=== PATIENT | male | born 1970 | race Caucasian/White ===

== ENCOUNTER 2024-05-17 07:17 | Outpatient (CLI) | payer MEDICAID, SELFPAY ==
--- NOTE | 2024-05-17 08:15 | P.ANES_ITS ---
Anesthesia Charges Start Date/Time Anesthesia Start Date: 05/17/24 Anesthesia Start Time: 08:22 Stop Date/Time Anesthesia Stop Date: 05/17/24 Anesthesia Stop Time: 09:18 Coding CPT Codes CPT Codes: BRYANT LWR INTST NDNM NOS - 62140 ([id number]) P1 - NORMAL HEALTHY PATIENT, QK - HEALTHCARE ECONOMICS CONSULTANT 2-4 CNCRNT ANES PROC, QX - INSURANCE EXAMINING CLERK SVC W/ MED DIRECTION
--- NOTE | 2024-05-17 08:15 | W.ANESCHARGE ---
Anesthesia Charges Start Date/Time Anesthesia Start Date: 05/17/24 Anesthesia Start Time: 08:22 Stop Date/Time Anesthesia Stop Date: 05/17/24 Anesthesia Stop Time: 09:18 Coding CPT Codes CPT Codes: BRYANT LWR INTST NDMT NOS - 63380 ([id number]) P1 - NORMAL HEALTHY PATIENT, QK - DIRECTOR OF ATHLETICS 2-4 CNCRNT ANES PROC, QX - CORK INSULATION SETTER SVC W/ MED DIRECTION
--- NOTE | 2024-05-17 09:33 | P.ANES_ITS ---
Anesthesia Charges Start Date/Time Anesthesia Start Date: 05/17/24 Anesthesia Start Time: 08:22 Stop Date/Time Anesthesia Stop Date: 05/17/24 Anesthesia Stop Time: 09:18 Coding CPT Codes CPT Codes: ANEMila LWR INTST NDSC NOS - 92031 ([id number]) QK - IMPLEMENTATION SPECIALIST 2-4 CNCRNT ANES PROC, QX - BASEBALL HAND SEWER SVC W/ MED DIRECTION, P1 - NORMAL HEALTHY PATIENT
--- NOTE | 2024-05-17 09:33 | W.ANESCHARGE ---
Anesthesia Charges Start Date/Time Anesthesia Start Date: 05/17/24 Anesthesia Start Time: 08:22 Stop Date/Time Anesthesia Stop Date: 05/17/24 Anesthesia Stop Time: 09:18 Coding CPT Codes CPT Codes: ANEMila LWR INTST NDSC NOS - 47541 ([id number]) QK - MUSIC MINISTER 2-4 CNCRNT ANES PROC, QX - VP DIRECTOR OF FINANCE SVC W/ MED DIRECTION, P1 - NORMAL HEALTHY PATIENT
--- NOTE | 2024-05-17 15:50 | PM.GSCN ---
History of Present Illness Consult details Date Seen: 05/17/24 Consult date: 05/17/24 Narrative: 54-year-old male underwent colonoscopy today in the morning and called our [facility] with complaints of bloody stools. Patient had multiple polyps removed with 2 larger polyps removed by hot snare. Patient states that he went home, he ate breakfast and went to bed. When he got up from sleeping, he went to the bathroom and had a bowel movement with clots. There was also blood in the toilet paper. 15 minutes later he had a second stool with clots as well. He got dizzy when he looked at blood and ?slid down on the carpet?. He does not feel like he passed out. His last bowel movement was about 1 hour ago. No bowel movements since then. He does feel urgency to have a bowel movement and has been passing a lot of gas. He denies abdominal pain. He feels gas discomfort in his belly. Review of Systems Narrative: General: no fevers HENT: no problems swallowing CV: no shortness of breath Resp: no cough GI: No nausea, vomiting, abdominal pain : no dysuria, no increased urinary frequency, no hematuria Skin: no new rashes Musculoskeletal: no back pain Neuro: no muscle weakness Psyche: no depression, no anxiety PFSH PFSH Medical History Hematospermia ?R36.1 - Hematospermia (ICD-10) Bloody stools ?K92.1 - Melena (ICD-10) Solitary kidney, congenital ?Q60.0 - Renal agenesis, unilateral (ICD-10) Surgical History H/O hernia repair ?Z98.890 - Other specified postprocedural states (ICD-10) ?Z87.19 - Personal history of other diseases of the digestive system (ICD-10) 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, 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, 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 answer In the past 12 months, utilities in danger of being shut off: declined to answer In past 12 months, lack of transportation kept you from medical appts, meetings, work, or getting things needed for daily living: declined to answer In the past 12 mos, have been you worried that your food would run out before you had money to buy more?: declined to answer In the past 12 mos, the food you bought just didn't last and you didn't have money to buy more?: declined to answer How often does anyone, including family, friends and others, physically hurt you: decline to answer How often does anyone, including family, friends and others, insult or talk down to you: decline to answer How often does anyone, including family, friends and others, threaten you with harm: decline to answer How often does anyone, including family, friends and others, scream or curse at you: decline to answer Meds Home Medications and Allergies Home Medications ?Medication ?Instructions ?Recorded ?Confirmed ?Type No Known Home Medications 05/17/24 05/17/24 History Allergies Allergy/AdvReac Type Severity Reaction Status Date / Time No Known Drug Allergies Allergy Verified 04/20/24 07:56 Exam Narrative: Exam Narrative: General appearance: Alert, cooperative, and in no distress Pulmonary: Chest symmetric, breathing is nonlabored Cardiovascular Heart: Not tachycardic Gastrointestinal Abdominal: soft, not distended, not tender to palpation or percussion, no peritoneal signs. Psychiatric: Alert, cooperative, normal affect. Results Labs Labs: All other labs normal. Progress Note:A&P Assessment and plan (1) Lower GI bleed: Status: Acute Assessment and Plan: 54-year-old male s/p Colonoscopy today in the morning presents with lower GI bleed. I discussed with the patient and his that we will check his hemoglobin. His abdominal exam is benign and I am not concerned for a perforation. I do not think obtaining CT abdomen is going to improve all management. If patient continues to have bloody stools, we will make a plan for repeat colonoscopy. If patient is stable with normal hemoglobin and his bloody stools have stopped, I would favor to treat him conservatively. I discussed this plan with the emergency room doctor.
== END 2024-05-17 07:18 | disposition home or self-care (01) ==
LOC: OP CLINIC 07:19
PROVIDERS: PCP Family Medicine; Visit Provider Surgery
DX: Z12.11 Encounter for screening for malignant neoplasm of colon (principal); K92.2 Gastrointestinal hemorrhage, unspecified; D12.3 Benign neoplasm of transverse colon; D12.4 Benign neoplasm of descending colon; D12.5 Benign neoplasm of sigmoid colon; D12.8 Benign neoplasm of rectum
CPT/HCPCS: 00811; 45381; 45385; 88305; J2704

== ENCOUNTER 2024-05-17 15:18 | Observation (INO) | payer OTHER, SELFPAY ==
--- OUTSIDE RECORDS SUMMARY | 2024-05-17 15:20 | XMS_ITS | Clinical Summary ---
Author Organization [employer] [facility] Address [place], [place] [address] Care Team Providers Care Manufacturing Chief Engineer Name Role Phone Pcp, No Primary Care Provider Unavailabl e Allergies Active Allergy Reactions Criticality Noted Date Comments Venom-Wasp Edema High 03/24/2021 Medications EPINEPHrine (EPIPEN) 0.3 mg/0.3 mL injection Inject 0.3 mg intramuscular. 1 Active dexAMETHasone (DECADRON) 6 mg tabletIndicati ons:Pneumonia due to COVID-19 virus Take 1 Tablet (6 mg) by mouth once daily with a meal. Take in morning 8 Tablet 1 Active omeprazole (PRILOSEC) 20 mg Delayed-Releas e capsuleIndicat ions:Pneumonia due to COVID-19 virus Take 1 Capsule (20 mg) by mouth once daily before a meal. Take while on dexamethasone for GI protection 10 Capsule 1 Active Active Problems Problem Noted Date Diagnosed Date Absent kidney, congenital 03/24/2021 Pneumonia due to COVID-19 virus 03/24/2021 No active medical problems 02/24/2011 Social History Tobacco Use Types Packs/Day Years Used Date Smoking Tobacco: Never Smokeless Tobacco: Former Chew Quit: 02/05/2010 Alcohol Use Standard Drinks/Week Comments Yes 0 (1 standard drink = 0.6 oz pur e alcohol) occ. Social Connections Answer Date Recorded Frequency of Communication with Friends and Fami ly Not on file 04/30/2021 Financial Resource Strain Answer Date R ecorded Difficulty of Paying Living Expenses Not on file 04/30/2021 Difficulty of Paying Living Expenses Not on file 04/30/2021 Sex and Gender Information Value Date Recorded Sex Assigned at Not on file Legal Sex Male 5:23 AM LOGISTICS COORDINATOR Gender Identity Not on file Sexual Orientation Not on file Obstetrics History Last Filed Vital Signs Vital Sign Reading Time Taken Comments Blood Pressure 118/76 03/25/2021 11:15 AM LOGISTICS COORDINATOR Pulse 71 03/25/2021 11:15 AM LOGISTICS COORDINATOR Temperature 36.6 C (97.8 F) 03/25/2021 11:15 AM LOGISTICS COORDINATOR Respiratory Rate 16 03/25/2021 11:15 AM LOGISTICS COORDINATOR Oxygen Saturation 94% 03/25/2021 11:15 AM LOGISTICS COORDINATOR Inhaled Oxygen Concentration - - Weight 89.4 kg (197 lb) 03/24/2021 4:00 AM LOGISTICS COORDINATOR Height 182.9 cm (6') 03/24/2021 4:00 AM LOGISTICS COORDINATOR Body Mass Index 26.72 03/24/2021 4:00 AM LOGISTICS COORDINATOR Plan of Treatment Health Maintenance Due Date Last Done Comments Tdap 1982 Depression screening for age 12+ 1983 BMI (ht and wt on same day) for age 18+ 1989 Hepatitis C screening for ag e 18-79 1989 Tetanus booster 1991 Colonoscopy through age 75 01/26/2016 Lipids for age 45-75 01/26/2016 Zoster (shingles) series for age 50+ (1 of 2) 2021 COVID-19 vaccine series (2023- season) 2024 Influenza for age 50-64 01/08/2024 HIV for age 15-65 Completed 09/09/2008 Pneumococcal series for age 6-49 Aged Out No longer eligible based on patient's age to complete this topic Procedures Procedure Name Priority Date/Time Associated Diagnosis Comments ANTI HIV 1/2 Routine 09/09/2008 10:38 AM CDT Screen for STD (Sexually Transmitted Disease) from Last 3 Months or Most Recently Relevant to Health Maintenance Results * ANTI HIV 1/2 (09/09/2008 10:38 AM CDT) ANTI HIV 1/2 Non-reacti ve [facility] Blood specimen (specimen) BLOOD SPECIMEN / Unknown 09/09/2008 10:38 AM CDT 09/09/2008 10:22 AM CDT us Dhaval Mckenna MD SEND OUTS Final Resul t [facility] INTERNAL ZIP [phone] [address] from Last 3 Months or Most Recently Relevant to Health Maintenance Insurance [employer] AP[employer]SE TANGELA EASON [id number] Advance Directives * Full Code (Latest Code Status on File) Date Activated Date Inactivated Comments 03/24/2021 5:58 AM 03/25/2021 3:58 PM Question Answer Comments Code Status Discussion: Reviewed Preferences Care Teams Manufacturing Chief Engineer Relationship Specialty Start Date End Date Pcp, No . PCP - General 03/20/21
[2024-05-17 15:26] VITALS: BP 128/77; PULSE 68; RESP 20; TEMP 36.6; O2SAT 99; BMI 29.3
[2024-05-17 16:14] LABS: Basophils Percent Auto 0.2 % (0.0-3.0); Hematocrit 45.5 % (37.0-53.0); Hemoglobin* 15.5 gm/dL (13.5-17.5); Immature Granulocytes Pct Auto 0.3 %; Lymphocytes Percent Auto 8.9 % (20-44); Mean Corpuscular HGB Conc 34 gm/dL (32-36); Mean Corpuscular Hemoglobin 31 pg (26-34); Mean Corpuscular Volume 90 fL (80-100); Neutrophils Percent Auto 80.6 % (42.0-72.0); Platelet Count* 306 K/uL (140-440); RDW Coefficient of Variation % 12.3 % (11.5-15.5); Red Blood Count 5.07 m/uL (4.30-5.90); White Blood Count* 18.28 K/uL (4.50-11.00)
[2024-05-17 16:18] LABS: Chloride* 106 mmol/L (96-114); Slide Review Reflex No
[2024-05-17 16:19] LABS: Potassium* 3.3 mmol/L (3.6-5.1); Sodium* 138 mmol/L (135-149)
[2024-05-17 16:21] LABS: Creatinine* 1.3 mg/dL (0.5-1.5); Est. Creatinine Clearance* 69.99; Estimated Glomerular Filt Rate 66 ml/min
[2024-05-17 16:22] LABS: Anion Gap 8 mEq/L (7-15); Blood Urea Nitrogen* 20 mg/dL (7-30); Calcium* 9.1 mg/dL (8.4-10.6); Carbon Dioxide* 24 mmol/L (20-32); Glucose* 106 mg/dL (60-115)
--- NOTE | 2024-05-17 16:35 | ED.GIBLEED ---
HPI - GI Bleed General Date Seen: 05/17/24 Chief complaint: GI Bleed Stated complaint: Bleeding post colonoscopy Time Seen by Provider: 05/17/24 15:32 Source: patient Mode of arrival: ambulatory Limitations: no limitations History of Present Illness HPI Narrative: Patient is a 54-year-old male presenting to emergency department for a GI bleed. He had a colonoscopy this morning and had several polyps removed. Since then he has had 2 episodes of blood per rectum. He passed several clots with both episodes. Of this echo in he states he felt lightheaded and has helped himself to the ground. Since then he has been having no further lightheadedness. States he feels back to normal now. Did initially have some abdominal discomfort that he says feels like gas pain. It does improve whenever he passes gas. He spoke to his surgeon who did a colonoscopy and was told to come in for evaluation. At this time denies fevers, chills, weakness, numbness, abdominal pain, diarrhea, constipation, vision changes. No other concerns noted. No history of bleeding disorders. Related Data Home Medications ?Medication ?Instructions ?Recorded ?Confirmed No Known Home Medications 05/17/24 05/17/24 Allergies Allergy/AdvReac Type Severity Reaction Status Date / Time No Known Drug Allergies Allergy Verified 04/20/24 07:56 Review of Systems Status of ROS: Reports: 10 or more systems reviewed and unremarkable except as noted in History and below [facility] Medical History Hematospermia ?R36.1 - Hematospermia (ICD-10) Bloody stools ?K92.1 - Melena (ICD-10) Solitary kidney, congenital ?Q60.0 - Renal agenesis, unilateral (ICD-10) Surgical History H/O hernia repair ?Z98.890 - Other specified postprocedural states (ICD-10) ?Z87.19 - Personal history of other diseases of the digestive system (ICD-10) 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, 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, 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 answer In the past 12 months, utilities in danger of being shut off: declined to answer In past 12 months, lack of transportation kept you from medical appts, meetings, work, or getting things needed for daily living: declined to answer In the past 12 mos, have been you worried that your food would run out before you had money to buy more?: declined to answer In the past 12 mos, the food you bought just didn't last and you didn't have money to buy more?: declined to answer Smoking Status: Never smoker Do you use any of these nicotine containing products: Smokeless Tobacco How often do you have a drink containing alcohol: 4 or more times a week How many standard drinks containing alcohol do you have on a typical day: 1 or 2 AUDIT-C Alcohol total score: 4 Non-prescribed substance use: denies use How often does anyone, including family, friends and others, physically hurt you: decline to answer How often does anyone, including family, friends and others, insult or talk down to you: decline to answer How often does anyone, including family, friends and others, threaten you with harm: decline to answer How often does anyone, including family, friends and others, scream or curse at you: decline to answer Exam Const: Vital Signs, click to edit/add: Vital Signs - 24 hr 05/17/24 15:26 05/17/24 17:23 Temperature 97.9 F 97.6 F Pulse Rate [Pulse Oximeter] 68 66 Respiratory Rate 20 18 Blood Pressure [Ri ght Upper Arm] 128/77 138/86 Pulse Oximetry 99 98 Oxygen Delivery Me thod Room Air Room Air Course Vital Signs Vital signs: Initial Vital Signs Temperature 97.9 F 05/17/24 15:26 Temperature Source Temporal Artery Scan 05/17/24 15:26 Pulse Rate 68 05/17/24 15:26 Pulse Rhythm Regular 05/17/24 15:26 Respiratory Rate 20 05/17/24 15:26 Blood Pressure 128/77 05/17/24 15:26 Blood Pressure Mean 94 05/17/24 15:26 Blood Pressure Position Sitting 05/17/24 15:26 Pulse Oximetry 99 05/17/24 15:26 Oxygen Delivery Method Room Air 05/17/24 15:26 Vital Signs Temperature 97.9 F 05/17/24 15:26 Pulse Rate 68 05/17/24 15:26 Respiratory Rate 20 05/17/24 15:26 Blood Pressure 128/77 05/17/24 15:26 Pulse Oximetry 99 05/17/24 15:26 Oxygen Delivery Method Room Air 05/17/24 15:26 Temperature 97.6 F 05/17/24 17:23 Pulse Rate 66 05/17/24 17:23 Respiratory Rate 18 05/17/24 17:23 Blood Pressure 138/86 05/17/24 17:23 Pulse Oximetry 98 05/17/24 17:23 Oxygen Delivery Method Room Air 05/17/24 17:23 MDM - GI Bleed MDM Narrative Medical decision making narrative: Patient is a 54-year-old male presenting for a GI bleed after the colonoscopy. I spoke to the return surgeon lab did the procedure. Plan right now is to do a hemoglobin monitor him for 3 hours issue bleeding continues and then repeat hemoglobin. In the 3 hours we waited he had 2 more episodes of blood in his stool with clots. First 1 is similar to his 1st to and the 2nd 1 was less blood. Hemoglobin went from 15.5-15.9. I spoke to the surgeon again and she recommends admission under her service for repeat colonoscopy in the morning. Patient is stable and agrees to this plan. Lab Data Labs: Lab Results 05/17/24 05/17/24 Range/Units 16:00 18:40 WBC 18.28 H (4.50-11.00) K/uL RBC 5.07 (4.30-5.90) m/uL Hgb 15.5 15.9 (13.5-17.5) gm/dL Hct 45.5 (37.0-53.0) % MCV 90 (80-100) fL MCH 31 (26-34) pg MCHC 34 (32-36) gm/dL RDW Coeff of Nicki 12.3 (11.5-15.5) % Plt Count 306 (140-440) K/uL Neut % (Auto) 80.6 H (42.0-72.0) % Lymph % (Auto) 8.9 L (20-44) % Mobile % (Auto) 9.0 (0.0-11.0) % Eos % (Auto) 1.0 (0.0-7.0) % Baso % (Auto) 0.2 (0.0-3.0) % Neut # (Auto) 14.70 H (1.7-7.0) K/uL Lymph # (Auto) 1.60 (0.90-2.90) K/uL Mobile # (Auto) 1.60 H (0.00-0.90) K/UL Eos # (Auto) 0.20 (0.00-0.50) K/uL Baso # (Auto) 0.00 (0.00-0.30) K/uL Abs Immat Gran (auto) 0.10 (0.00-0.30) K/uL Imm/Tot Granulo (auto) 0.3 % Sodium 138 (135-149) mmol/L Potassium 3.3 L (3.6-5.1) mmol/L Chloride 106 (96-114) mmol/L Carbon Dioxide 24 (20-32) mmol/L Anion Gap 8 (7-15) mEq/L BUN 20 (7-30) mg/dL Creatinine 1.3 (0.5-1.5) mg/dL Estimated Creat Clear 69.99 Estimated GFR 66 ml/min Glucose 106 (60-115) mg/dL Calcium 9.1 (8.4-10.6) mg/dL Discharge Plan Discharge Clinical Impression: Lower GI bleed Patient Disposition: Admitted As Observation Condition: Stable Prescriptions: No Action No Known Home Medications Follow Up/Referrals: Bobby Weiner MD [Primary Care Provider] -
--- OUTSIDE RECORDS SUMMARY | 2024-05-17 16:59 | XMS_ITS | Clinical Summary ---
Author Organization [employer] [facility] Address [place], [place] [address] Care Team Providers Care Internship Name Role Phone Pcp, No Primary Care [...] on file Legal Sex Male 5:23 AM CAMPUS REP Gender Identity Not on file Sexual Orientation Not on file Obstetrics History Last Filed Vital Signs Vital Sign Reading Time Taken Comments Blood Pressure 118/76 03/25/2021 11:15 AM CAMPUS REP Pulse 71 03/25/2021 11:15 AM CAMPUS REP Temperature 36.6 C (97.8 F) 03/25/2021 11:15 AM CAMPUS REP Respiratory Rate 16 03/25/2021 11:15 AM CAMPUS REP Oxygen Saturation 94% 03/25/2021 11:15 AM CAMPUS REP Inhaled Oxygen Concentration - - Weight 89.4 kg (197 lb) 03/24/2021 4:00 AM CAMPUS REP Height 182.9 cm (6') 03/24/2021 4:00 AM CAMPUS REP Body Mass Index 26.72 03/24/2021 4:00 AM CAMPUS REP Plan of Treatment Health Maintenance Due Date [...] AM CDT) ANTI HIV 1/2 Non-reacti ve [facility] Blood specimen (specimen) BLOOD SPECIMEN / Unknown 09/09/2008 10:38 AM CDT 09/09/2008 10:22 AM CDT us Dhaval Mckenna MD SEND OUTS Final Resul t [facility] INTERNAL ZIP [phone] [address] from Last 3 Months or Most Recently Relevant to Health Maintenance Insurance [employer] AP[employer] [place]ANGEL[place] EASON [id number] Advance Directives * Full Code (Latest Code Status on File) Date Activated Date Inactivated Comments 03/24/2021 5:58 AM 03/25/2021 3:58 PM Question Answer Comments Code Status Discussion: Reviewed Preferences Care Teams Internship Relationship Specialty Start Date End Date Pcp, No . PCP - General 03/20/21
[2024-05-17 17:23] VITALS: BP 138/86; PULSE 66; RESP 18; TEMP 36.4; O2SAT 98
[2024-05-17 18:44] LABS: Hemoglobin* 15.9 gm/dL (13.5-17.5)
[2024-05-17 18:52] VITALS: BP 157/94; PULSE 66; RESP 18; TEMP 36.6; O2SAT 100
[2024-05-17 20:23] VITALS: BP 157/94; PULSE 66; RESP 18; TEMP 36.6; O2SAT 96; BMI 28.9
--- OUTSIDE RECORDS SUMMARY | 2024-05-17 20:36 | XMS_ITS | Clinical Summary ---
Author Organization [employer] [facility] Address [place], [place] [address] Care Team Providers Care Automobile Mechanic Name Role Phone Pcp, No Primary Care [...] on file Legal Sex Male 5:23 AM YARD CALLER Gender Identity Not on file Sexual Orientation Not on file Obstetrics History Last Filed Vital Signs Vital Sign Reading Time Taken Comments Blood Pressure 118/76 03/25/2021 11:15 AM YARD CALLER Pulse 71 03/25/2021 11:15 AM YARD CALLER Temperature 36.6 C (97.8 F) 03/25/2021 11:15 AM YARD CALLER Respiratory Rate 16 03/25/2021 11:15 AM YARD CALLER Oxygen Saturation 94% 03/25/2021 11:15 AM YARD CALLER Inhaled Oxygen Concentration - - Weight 89.4 kg (197 lb) 03/24/2021 4:00 AM YARD CALLER Height 182.9 cm (6') 03/24/2021 4:00 AM YARD CALLER Body Mass Index 26.72 03/24/2021 4:00 AM YARD CALLER Plan of Treatment Health Maintenance Due Date [...] AM CDT) ANTI HIV 1/2 Non-reacti ve [facility] Blood specimen (specimen) BLOOD SPECIMEN / Unknown 09/09/2008 10:38 AM CDT 09/09/2008 10:22 AM CDT us Dhaval Mckenna MD SEND OUTS Final Resul t [facility] INTERNAL ZIP [phone] [address] from Last 3 Months or Most Recently Relevant to Health Maintenance Insurance [employer] AP[employer] [place] E[place]ON [id number] Advance Directives * Full Code (Latest Code Status on File) Date Activated Date Inactivated Comments 03/24/2021 5:58 AM 03/25/2021 3:58 PM Question Answer Comments Code Status Discussion: Reviewed Preferences Care Teams Automobile Mechanic Relationship Specialty Start Date End Date Pcp, No . PCP - General 03/20/21
[2024-05-17] MEDS: LACTATED RINGERS 1000 ML 1,000 ML 100 ML IV (20:39)
[2024-05-17] MEDS: polyethylene glycoL 238 GM BULK BOTTLE PO (22:00)
[2024-05-17 23:00] VITALS: BP 144/128; PULSE 75; RESP 16; TEMP 36.7; O2SAT 97
--- NOTE | 2024-05-18 02:57 | PC.NURSE ---
The patient had 1 episode of a large amount of dark blood per rectum.. and reports an increase in abdominal pain at this time.
[2024-05-18 03:00] VITALS: BP 136/84; PULSE 65; RESP 16; TEMP 36.6; O2SAT 97
--- NOTE | 2024-05-18 06:27 | PC.NURSE ---
DR Eufemia CASTRO HERE TAKING PT TO [facility] AND WILL DC FROM [facility].
--- NOTE | 2024-05-18 07:12 | P.ANES_ITS ---
Anesthesia Charges Start Date/Time Anesthesia Start Date: 05/18/24 Anesthesia Start Time: 06:30 Stop Date/Time Anesthesia Stop Date: 05/18/24 Anesthesia Stop Time: 07:05 Coding CPT Codes CPT Codes: BRYANT LWR INTST SCR COLSC - 90132 ([id number]) P1 - NORMAL HEALTHY PATIENT, QK - FACE WORKER 2-4 CNCRNT ANES PROC, QX - CLAIMS COORDINATOR SVC W/ MED DIRECTION
--- NOTE | 2024-05-18 07:12 | W.ANESCHARGE ---
Anesthesia Charges Start Date/Time Anesthesia Start Date: 05/18/24 Anesthesia Start Time: 06:30 Stop Date/Time Anesthesia Stop Date: 05/18/24 Anesthesia Stop Time: 07:05 Coding CPT Codes CPT Codes: BRYANT LWR INTST SCR COLSC - 32443 ([id number]) P1 - NORMAL HEALTHY PATIENT, QK - CHIEF DEPUTY SHERIFF 2-4 CNCRNT ANES PROC, QX - WATCH INSPECTOR SVC W/ MED DIRECTION
--- NOTE | 2024-05-18 07:13 | P.DS_ITS ---
DS: Providers Provider Date Seen: 05/18/24 Primary care physician: Bobby Weiner MD Attending Physician on discharge: Mary Silverman MD DS: Diagnosis Discharge Diagnosis (1) Lower GI bleed: Status: Acute DS: Summary Hospital Course Hospital Course: Patient was admitted overnight after he underwent colonoscopy on 05/17/2024 and came back to the emergency room with multiple bloody stools. Patient was prepped with MiraLax Gatorade. He had several stools with clots but was hemodynamically stable. His hemoglobin was stable. Patient was then brought back for repeat colonoscopy and no active bleeding was seen from polypectomy sites. All polypectomy sites were treated with clips to prevent future bleeding. Time Spent with Patient Time attestation: Total time spent providing and/or coordinating discharge services: Exam Narrative: Exam Narrative: Respiratory: Clear lungs to auscultation Cardiac: Regular rate and rhythm, not tachycardic. Const: Vital Signs, click to edit/add: Vital Signs - 24 hr 05/17/24 15:26 05/17/24 17:23 05/17/24 18:52 Temperature 97.9 F 97.6 F 97.9 F Pulse Rate [Pulse Oximeter] 68 66 66 Respiratory Rate 20 18 18 Blood Pressure [Le ft Arm] 157/94 H Blood Pressure [Ri ght Upper Arm] 128/77 138/86 Pulse Oximetry 99 98 100 Oxygen Delivery Me thod Room Air Room Air Room Air 05/17/24 20:23 05/17/24 23:00 05/17/24 23:00 Temperature 97.9 F 98.0 F Pulse Rate [Pulse Oximeter] 66 75 Respiratory Rate 18 16 Blood Pressure [Le ft Arm] 157/94 H 144/128 H Blood Pressure [Ri ght Upper Arm] Pulse Oximetry 96 97 97 Oxygen Delivery Me thod Room Air Room Air Room Air 05/18/24 03:00 Temperature 97.8 F Pulse Rate [Pulse Oximeter] 65 Respiratory Rate 16 Blood Pressure [Le ft Arm] 136/84 Blood Pressure [Ri ght Upper Arm] Pulse Oximetry 97 Oxygen Delivery Me thod Room Air DS: Data Data Completed and Pending Labs on day of discharge: Labs from last 24 hours 05/17/24 05/17/24 18:40 16:00 WBC 18.28 H RBC 5.07 Hgb 15.9 15.5 Hct 45.5 MCV 90 MCH 31 MCHC 34 RDW Coeff of Nicki 12.3 Plt Count 306 Neut % (Auto) 80.6 H Lymph % (Auto) 8.9 L Newton % (Auto) 9.0 Eos % (Auto) 1.0 Baso % (Auto) 0.2 Neut # (Auto) 14.70 H Lymph # (Auto) 1.60 Newton # (Auto) 1.60 H Eos # (Auto) 0.20 Baso # (Auto) 0.00 Abs Immat Gran (auto) 0.10 Imm/Tot Granulo (auto) 0.3 Sodium 138 Potassium 3.3 L Chloride 106 Carbon Dioxide 24 Anion Gap 8 BUN 20 Creatinine 1.3 Estimated Creat Clear 69.99 Estimated GFR 66 Glucose 106 Calcium 9.1 Discharge Plan Discharge Disposition: Home w/ Parent or Adult Discharging Surgeon: Brittany Zamudio Follow-Up Appointment: none Prescriptions: No Action No Known Home Medications Activity Level: No strenuous activity Discharge Diet: Regular Discharge Orders: Discharge Order (Routine); Ordered 05/18/24 Ordered By: Brittany Zamudio
== END 2024-05-18 06:15 | disposition home or self-care (01) ==
LOC: ED 19:11 → MEDSURG 19:35
PROVIDERS: Admitting Provider Student in an Organized Health Care Education/Training Program; Emergency Provider Student in an Organized Health Care Education/Training Program; PCP Family Medicine; Visit Provider Student in an Organized Health Care Education/Training Program
DX: K92.2 Gastrointestinal hemorrhage, unspecified (principal)
CPT/HCPCS: 00812; 36415; 45382; 80048; 85018; 85025; 99283; 99284; A9270; G0378; J2704; J7120